=== PATIENT | female | born 1985 | race Caucasian/White ===

== ENCOUNTER 2016-09-17 07:38 | Day surgery (SDC) | payer OTHER ==
[2016-09-17 07:56] VITALS: BMI 48.2
[2016-09-17 08:15] VITALS: O2SAT 100
--- NOTE | 2016-09-17 09:28 | CP.SDSHP ---
Same Day Surgery H & P - History Proposed Procedure: EGD Pre-Op Diagnosis: SEE NOTES - Previous Medical/Surgical History Misc: Other Pain: 4.Moderate Pain Previous Surgical History: RENAL STONES RX. SX. - Allergies Allergies: Allergies No Known Allergies Allergy (Verified 11/28/15 00:47) - Physical Exam General Appearance: N Vital Signs: Vital Signs 09/17/16 08:01 Temperature 98 F Pulse Rate 80 Respiratory 16 Rate Blood Pressure 134/81 O2 Sat by Pulse 100 Oximetry Mental Status: Alert & Oriented x3 Neuro: WNL Heart: WNL Lungs: WNL GI: Other - {Optional Preform as Required} Breast: WNL Abdomen: Other Rectal: WNL Integument: WNL : Other Ortho: WNL ENT: WNL - Impression Pt. Evaluated Today:Candidate for Anesthesia & Procedure: Yes - Date & Time Time: 09:28 Short Stay Discharge - Short Stay Discharge Admitting Diagnosis/Reason for Visit: FUNCTIONAL DYSPEPSIA Disposition: HOME/ ROUTINE
[2016-09-17] MEDS ORDERED: Belladonna-Phenobarbital PO STA (09:30)
[2016-09-17] MEDS ORDERED: Pantoprazole 40 mg EC Tab PO STA (09:30)
[2016-09-17] MEDS ORDERED: Propofol 10 mg/ml Inj (20 ML) ONE ×2 (09:32→09:36)
[2016-09-17 11:20] VITALS: TEMP 97.5
[2016-09-17 11:21] VITALS: RESP 20
[2016-09-17 11:24] VITALS: BP 111/78; PULSE 89
== END 2016-09-17 10:40 | disposition home or self-care (01) ==
LOC: C.ENDO 07:38
PROVIDERS: ATTEND Specialist
DX: K30 Functional dyspepsia (principal); R10.13 Epigastric pain; E66.01 Morbid (severe) obesity due to excess calories; K29.70 Gastritis, unspecified, without bleeding; K44.9 Diaphragmatic hernia without obstruction or gangrene
CPT/HCPCS: 43239; 84703; 88305; 88342; J2001; J2704